=== PATIENT | female | born 1975 | race Hispanic/Latino ===

== ENCOUNTER 2017-08-12 07:57 | Observation (INO) | payer MEDICAID ==
[2017-08-10 13:53] LABS: Basophils % (Auto) 0.4 % (0.0-1.8); Eosinophils # (Auto) 0.3 K/mm3 (0.0-0.4); Eosinophils % (Auto) 2.9 % (0.0-4.3); Hematocrit 39.3 % (30.3-42.9); Hemoglobin 13.1 gm/dl (10.1-14.3); Lymphocytes # (Auto) 1.6 K/mm3 (1.2-5.4); Lymphocytes % (Auto) 16.9 % (13.4-35.0); Mean Corpuscular HGB Conc 33 % (30-34); Mean Corpuscular Hemoglobin 29 pg (28-32); Mean Corpuscular Volume 88 fl (79-97); Monocytes # (Auto) 0.5 K/mm3 (0.0-0.8); Monocytes % (Auto) 5.4 % (0.0-7.3); Platelet Count 182 K/mm3 (140-440); Red Blood Count 4.49 M/mm3 (3.65-5.03); Red Cell Distribution Width 14.7 % (13.2-15.2)
--- NOTE | 2017-08-10 13:58 | Anesthesia Consultation ---
Anesthesia Consult and Med Hx Date of service: 08/10/17 - Airway Anesthetic Teeth Evaluation: Dentures (upper and lower) ROM Head & Neck: Adequate Mental/Hyoid Distance: Adequate Mallampati Class: Class II Intubation Access Assessment: Probably Good - Pulmonary Exam CTA: Yes - Cardiac Exam Cardiac Exam: RRR - Pre-Operative Health Status ASA Pre-Surgery Classification: ASA3 Proposed Anesthetic Plan: General Nerve Block: TAP - Pulmonary Hx Smoking: Yes (1/2 ppd x 10yrs) - Cardiovascular System Hx Hypertension: No Hx Heart Attack/AMI: No Hx Heart Murmur: Yes (hx of MVP, resolved per pt) - Central Nervous System Hx Seizures: No CVA: No Hx Psychiatric Problems: No - Endocrine Hx Renal Disease: No Hx Liver Disease: No Hx Non-Insulin Dependent Diabetes: No - Hematic Hx Anemia: Yes - Other Systems Hx Cancer: No Hx Obesity: Yes - Additional Comments Anesthesia Medical History Comments: NAC
--- NOTE | 2017-08-12 07:27 | History and Physical Report ---
History of Present Illness Date of examination: 08/12/17 Date of admission: 08/12/2017 Chief complaint: Abnormal uterine bleeding and simple endometrial hyperplasia History of present illness: 41-year-old 0-3 with a history of abnormal uterine bleeding. The patient reports heavy vaginal bleeding with the passage of clots and flooding during her menses. She has also experienced intermenstrual bleeding. Pelvic ultrasound revealed evidence of a mildly enlarged uterus with a thickened endometrium of 2.41 cm. An endometrial biopsy was performed with evidence of simple hyperplasia without atypia. The patient has attempted medical management without significant improvement of her symptoms. She has elected to undergo definitive surgical management. Past History Past Medical History: other (simple endometrial hyperplasia) Past Surgical History: section Social history: , smoking - Obstetrical History : 4 Para: 2 Hx # Term Pregnancies: 2 Number of Pregnancies: 0 Spontaneous Abortions: 1 Induced : 1 Number of Living Children: 3 Medications and Allergies Allergies Allergy/AdvReac Type Severity Reaction Status Date / Time codeine Allergy N&V Verified 08/10/17 09:11 Home Medications Medication Instructions Recorded Confirmed Last Taken Type Norethindrone [Sirena] 1 tab PO DAILY 08/10/17 08/10/17 Unknown History Active Meds: Active Medications Famotidine (Pepcid) 20 mg PO PREOP NR Stop: 08/12/17 23:59 Lactated Ringer's (Lactated Ringers) 1,000 mls @ 100 mls/hr IV DIRECT BARB Midazolam HCl (Versed) 2 mg IV PREOP NR Stop: 08/12/17 23:59 Review of Systems Constitutional: fatigue, weakness Genitourinary: vaginal bleeding, pelvic pain - Vital Signs Vital signs: Vital Signs Temp Pulse Resp BP 97.6 F 60 16 124/70 08/10/17 13:15 08/10/17 13:15 08/10/17 13:15 08/10/17 13:15 Temp Pulse Resp BP Pulse Ox 97.6 F 60 16 124/70 08/10/17 13:15 08/10/17 13:15 08/10/17 13:15 08/10/17 13:15 - Physical Exam Breasts: Positive: deferred Cardiovascular: Regular rate Lungs: Positive: Clear to auscultation Abdomen: Positive: normal appearance, soft Results Result Diagrams: 08/10/17 13:20 All other labs normal. Assessment and Plan - Patient Problems (1) Abnormal uterine bleeding Status: Acute Plan to address problem: Patient is scheduled for a robotic hysterectomy (2) Simple endometrial hyperplasia without atypia Status: Acute
[~2017-08-12 07:57] MED LIST: GELFOAM POWDER 1GM MM ONE; NEOSPORIN GU IR ONE; THROMBIN (BOVINE) TP ONE
[2017-08-12] MEDS ORDERED: ANCEF/STERILE WATER 2 GM/20 ML 2 GM/20 ML SYRINGE IV NR (08:00)
[2017-08-12] MEDS ORDERED: ZOFRAN IV PRN ×2 (08:39→12:32)
[2017-08-12] MEDS ORDERED: MORPHINE IV PRN (08:44)
[2017-08-12] MEDS ORDERED: PEPCID PO NR (09:00)
[2017-08-12] MEDS ORDERED: NEURONTIN PO NR (09:00)
[2017-08-12] MEDS ORDERED: LACTATED RINGERS 1,000 ML IV SCH (09:00)
[2017-08-12] MEDS ORDERED: VERSED IV NR (09:00)
[2017-08-12] MEDS ORDERED: NACL BACTERIOSTATIC INFILTRATI ONE (09:02)
[2017-08-12] MEDS ORDERED: MARCAINE 0.5% 60 ML INFILTRATI ONE (09:29)
[2017-08-12] MEDS ORDERED: LACTATED RINGERS 1,000 ML ONE ×2 (09:29→12:17)
[2017-08-12] MEDS: SUBLIMAZE IV NR ×2 (09:37→09:47)
[2017-08-12] MEDS ORDERED: XYLOCAINE 1% 20 mL ONE (09:38)
--- NOTE | 2017-08-12 10:36 | Anesthesia Day of Surgery ---
Anesthesia Day of Surgery - Day of Surgery Patient Examined: Yes Patient H&P Reviewed: Yes Patient is NPO: Yes
[2017-08-12] MEDS ORDERED: DIPRIVAN 10 MG/ML IV ONE (10:49)
[2017-08-12] MEDS ORDERED: DILAUDID ONE (10:50)
[2017-08-12] MEDS ORDERED: ZEMURON IV ONE (10:51)
[2017-08-12] MEDS ORDERED: XYLOCAINE MPF 2% ONE (10:51)
[2017-08-12] MEDS ORDERED: DECADRON ONE (11:34)
[2017-08-12] MEDS ORDERED: ZOFRAN ONE (11:34)
[2017-08-12] MEDS ORDERED: THROMBIN (BOVINE) TP ONE (12:01)
[2017-08-12] MEDS ORDERED: NEOSPORIN GU IR ONE (12:01)
[2017-08-12] MEDS ORDERED: NACL 0.9% IR ONE ×2 (12:01)
[2017-08-12] MEDS ORDERED: GELFOAM POWDER 1GM MM ONE (12:01)
[2017-08-12] MEDS ORDERED: PROAIR IH ONE (12:18)
[2017-08-12] MEDS ORDERED: ROBINUL ONE (12:23)
[2017-08-12] MEDS ORDERED: NEOSTIGMINE ONE (12:25)
--- NOTE | 2017-08-12 12:26 | Operative Report ---
Operative Report Operative Report: Date of surgery: 08/12/2017 Preoperative diagnoses: Simple hyperplasia; dysfunctional uterine bleeding Postoperative diagnoses: Same as above Procedure: Robotic hysterectomy and bilateral salpingo-oophorectomy; lysis of adhesions Surgeon: Alysa Esquivel M.D. Brake Repair Mechanic: [place] Can Anesthesia: Gen. endotracheal anesthesia Estimated blood loss: 50 mL Pathology: Uterus, cervix, bilateral tubes and ovaries Indication: 41-year-old with a history of dysfunctional uterine bleeding and simple endometrial hyperplasia. Procedure: The patient was taken to the operating room and given general endotracheal anesthesia without complication. She is prepped and draped in a normal sterile fashion. A bivalve speculum was placed in the patient's vagina and a single- tooth tenaculum placed on the anterior lip of the cervix. The uterus was sounded with the uterine sound. A [employer] uterine manipulator was placed in the bivalve speculum was then removed. Attention was then turned to the patient's abdomen where a 12 millimeter supra umbilical skin incision was then made. A Veress needle was placed and peritoneal entry was verified water-filled syringe. Insufflation of the peritoneal cavity was performed with CO2 gas. The 12 mm trocar was then placed under direct visualization. An additional 8 mm trocar was placed on the patient's left and right lateral side just opposite of the supraumbilical trocar. An additional 5 mm right lateral trocar was then placed as the accessory port. The Yoan Figueroa device was used to close the fascia of the 12 mm incision. The patient was then placed in steep Trendelenburg. The da Oliverio robot was then engaged. A fenestrated forcep was placed in arm 2 and a vessel sealer was placed in arm 1. General survey revealed evidence of bilateral ovarian cysts. The uterus was enlarged with evidence of adhesions of the lower uterine segment to the anterior abdominal wall. Lysis of adhesions were performed. The surgeon then transferred to the surgical console. The infundibulopelvic ligament was then isolated on the right. The vessel sealer was used to coagulate the ligament which was then transected. The tube and ovary were transected from the supply. The round ligament was then coagulated and transected also. The vesicouterine peritoneum was then entered from the patient's right side. The uterine vessels were then coagulated with the vessel sealer. The vessels were then transected . Attention was then turned to the patient's left side where the infundibulopelvic ligament and mesosalpinx were again isolated coagulated and transected. The vesical peritoneum was then entered from the left and joined in the midline. Peritoneum was reflected off of the lower uterine segment. Uterine vessels were then coagulated and then transected. The blood supply to the uterus was adequately contained, a posterior colpotomy was made. The V care ring was visualized. Posterior colpotomy was created with the monopolar scissors. The incision was continued circumferentially until anterior colpotomy was made. The cervix and uterus were amputated from the vaginal cuff. The uterus was then removed along with the tubes and ovaries bilaterally through the vagina and a warm laparotomy sponge was placed and maintain the pneumoperitoneum. The vaginal cuff was then closed in a running fashion with V lock suture. Irrigation of the pelvis was performed. Gelfoam with thrombin was applied to the incision. The skin was then reapproximated with 4-0 Monocryl. The tissue was sent to pathology which included the cervix, uterus, tubes and ovaries. The patient was then successfully extubated. She was then taken to the recovery room in stable condition. All sponge laps and needle counts were correct x2.
[2017-08-12] MEDS ORDERED: MILK OF MAGNESIA PO PRN (12:32)
[2017-08-12] MEDS ORDERED: PERCOCET 5/325 PO PRN (12:32)
[2017-08-12] MEDS ORDERED: MOTRIN PO PRN (12:32)
[2017-08-12] MEDS ORDERED: TYLENOL PO PRN (12:32)
[2017-08-12] MEDS ORDERED: MORPHINE PCA 30MG/30ML IV ONE (12:37)
[2017-08-12] MEDS ORDERED: MORPHINE PCA 30MG/30ML IV SCH (13:00)
[2017-08-12] MEDS ORDERED: DILAUDID IV PRN (13:12)
[2017-08-12] MEDS ORDERED: DILAUDID IV NR (13:30)
--- NOTE | 2017-08-12 14:04 | Post Anesthesia Evaluation ---
- Post Anesthesia Evaluation Patient Participated: Yes Airway Patent: Yes Stable Respiratory Function: Yes Temp > 96.8F: Yes Pain Manageable: Yes Adequeate Hydration: Yes Anesthesia Complications: No
[2017-08-12] MEDS: D5LR 1,000 ML IV SCH (17:50)
[2017-08-12] MEDS: TORADOL IV SCH ×2 (18:34→23:39)
[2017-08-13] MEDS: D5LR 1,000 ML IV SCH ×2 (00:50→07:24)
[2017-08-13 05:27] LABS: Hematocrit 36.2 % (30.3-42.9); Hemoglobin 11.7 gm/dl (10.1-14.3)
[2017-08-13] MEDS: TORADOL IV SCH (05:43)
[2017-08-13 07:14] VITALS: BP 107/50
--- NOTE | 2017-08-13 08:19 | Progress Note ---
Assessment and Plan - Patient Problems (1) Abnormal uterine bleeding Current Visit: Yes Status: Acute Plan to address problem: Patient doing well Discharge home today (2) Simple endometrial hyperplasia without atypia Current Visit: Yes Status: Acute Subjective - Subjective Date of service: 08/13/17 Interval history: The patient reports doing well. She is tolerating a clear diet without complication. Her pain is well-controlled. Patient reports: appetite normal, voiding normally, pain well controlled Objective - Vital Signs Latest vital signs: Vital Signs Temp Pulse Resp BP BP Pulse Ox 08/13/17 05:20 98.5 F 66 18 107/50 08/13/17 00:34 98.5 F 61 18 104/54 08/12/17 20:10 97.9 F 71 16 107/64 08/12/17 16:03 98.4 F 76 18 111/64 96 08/12/17 14:20 16 08/12/17 13:55 82 14 124/76 96 08/12/17 13:53 17 08/12/17 13:45 74 17 116/65 95 08/12/17 13:30 67 16 110/72 100 08/12/17 13:23 22 08/12/17 13:15 69 22 124/72 100 08/12/17 13:00 71 24 102/66 99 08/12/17 12:55 82 19 110/71 99 08/12/17 12:48 97.4 F L 80 20 90/54 99 08/12/17 10:50 76 16 115/65 100 08/12/17 10:45 76 16 112/62 99 08/12/17 10:35 76 18 116/64 99 08/12/17 10:25 75 24 113/60 98 08/12/17 10:20 80 22 110/53 98 08/12/17 10:15 72 20 108/54 97 08/12/17 10:10 76 20 107/56 97 08/12/17 10:05 76 24 110/53 97 08/12/17 10:00 72 22 110/59 97 08/12/17 09:55 80 22 105/53 97 08/12/17 09:50 68 16 97/60 97 08/12/17 09:45 64 18 103/59 96 08/12/17 09:40 60 20 106/59 97 08/12/17 09:35 62 16 113/72 98 01/10/18 09:03 98.2 F 63 16 107/54 96 08/12/17 08:35 98.2 F 63 16 107/54 96 Intake and Output 08/12/17 08/13/17 08/13/17 22:59 06:59 14:59 Intake Total 240 1153.333 820.833 Output Total 400 1100 Balance -160 53.333 820.833 Intake: IV 733.333 820.833 D5lr 1,000 ml @ 125 mls/ 733.333 820.833 hr IV DIRECT BARB Rx#: [id number] Intake, Free Water 240 420 Output: Urine 400 1100 Indwelling Catheter 400 1100 Other: Total, Output Amount 400 600 Voiding Method Indwelling Catheter - Exam Abdomen: Present: normal appearance, soft Incision: Present: normal
--- NOTE | 2017-08-13 08:20 | Discharge Summary ---
Providers - Providers Date of Admission: 08/12/17 12:32 Date of discharge: 08/13/17 Attending physician: SHOLA MORALES Primary care physician: DONALD ROE Hospitalization Reason for admission: other (simple endometrial hyperplasia) Procedure: other (robotic hysterectomy and bilateral salpingo-oophorectomy) Incision: normal, dry Discharge diagnosis: other (simple endometrial hyperplasia) Hospital course: The patient was admitted the day of surgery and underwent a robotic hysterectomy and bilateral salpingo-oophorectomy. Please see operative note for details of surgery. Her postoperative course was uneventful. Condition at discharge: Good Disposition: [id number] TO HOME OR SELFCARE - Discharge Diagnoses (1) Abnormal uterine bleeding Status: Acute (2) Simple endometrial hyperplasia without atypia Status: Acute Plan - Discharge Medications Prescriptions: Ibuprofen [Motrin] 800 mg PO Q8HR PRN #60 tablet PRN Reason: Pain Oxycodone HCl/Acetaminophen [Percocet 7.5/325 mg] 1 each PO Q6HR PRN #45 tablet PRN Reason: Pain - Provider Discharge Summary Activity: no sex for 6 weeks, no heavy lifting 4 weeks, no strenuous exercise Diet: routine Instructions: routine Additional instructions: [] Smoking cessation referral if applicable(refer to patient education folder for contact #) [] Refer to [facility] Booklet Call your doctor immediately for: * Fever > 100.5 * Heavy vaginal bleeding ( >1 pad per hour) * Severe persistent headache * Shortness of breath * Reddened, hot, painful area to leg or breast * Drainage or odor from incision. * Keep incision clean and dry at all times and follow doctor's instructions regarding bathing/showering Follow-up in [address] Morales - Follow up plan
== END 2017-08-13 11:32 | disposition home or self-care (01) ==
LOC: OR 07:57 → OB 12:32
PROVIDERS: ADMIT Obstetrics & Gynecology; ATTEND Obstetrics & Gynecology
DX: N93.8 Other specified abnormal uterine and vaginal bleeding (principal); N85.01 Benign endometrial hyperplasia; F17.210 Nicotine dependence, cigarettes, uncomplicated
CPT/HCPCS: 36415; 58571; 64450; 84703; 85014; 85018; 85025; 86850; 86900; 86901; 88307; 96374; 96375; 96376; A4217; A4649; G0378; J0690; J1100; J1170; J1885; J2250; J2270; J2405; J2704; J2710; J3010; J7120; J7121; S2900